=== PATIENT | male | born 1960 | race Caucasian/White ===

== ENCOUNTER 2022-06-19 06:38 | Day surgery (SDC) | payer OTHER, SELFPAY ==
[2022-06-19] VITALS (7 sets, daily range): BP systolic 123–150; BP diastolic 83–91; PULSE 74–81; RESP 16–17; TEMP 36.3–37.1; O2SAT 95–98; BMI 32.1
--- NOTE | 2022-06-19 06:50 | EKG12_ITS ---
Test Reason : PREOP Blood Pressure : / mmHG Vent. Rate : 079 BPM Atrial Rate : 079 BPM P-R Int : 156 ms QRS Dur : 076 ms QT Int : 386 ms P-R-T Axes : 001 -13 004 degrees QTc Int : 442 ms Normal sinus rhythm Normal ECG Confirmed by MOSHE MARTINEZ, ANDREW ([id number]), publishing editor OLGA MARC ([id number]) on 06/23/2022 1:17:17 PM Referred By: Yaakov Lyles Confirmed By:ANDREW MESA MD
[2022-06-19] MEDS: Lactated Ringers 1,000 ML 15 ML IV (07:09)
--- NOTE | 2022-06-19 07:12 | PCM.HP.BLA ---
History and Physical Date of Admission: 06/19/22 Visit Reasons:?Umbilical Hernia Chief Complaint: umbilical hernia, family history of colon cancer Hand Tufter Required: No Is patient in pain?: No Allergies No Known Allergies Allergy (Verified 05/07/22 09:00) Medications cholecalciferol (vitamin D3) 125 mcg (5,000 unit) capsule 125 mcg PO DAILY 05/07/22 [History Confirmed 05/07/22] losartan 50 mg tablet ea PO 05/07/22 [History Confirmed 05/07/22] omeprazole 20 mg capsule,delayed release ea PO 05/07/22 [History Confirmed 05/07/22] PFSH Medical History?(Updated 05/07/22 @ 08:58 by Krystle Sykes) History of melanoma HTN (hypertension) Surgical History?(Updated 05/07/22 @ 08:58 by Krystle Sykes) History of colonoscopy (~2016) History of melanoma excision Family History?(Updated 05/07/22 @ 08:59 by Krystle Sykes) Mother Colon cancerFather Cancer ?? ? lung Heart diseaseDaughter Cancer ?? ? melanomaBrother Hepatitis Social History Smoking Status:? Never smoker HPI HPI HPI: NITA MENESES, is a 61 M who presents to the office today for surgical consultation regarding an umbilical hernia.? The patient is referred by Dr. Yaakov Lyles and a written copy of my surgical consult recommendations will be returned to her.? By her notation the patient is also in need of a screening colonoscopy.? The patient's concern regarding his hernia is that although he has had it for a while now it is becoming intermittently uncomfortable.? He is still able to reduce it.? Finally he does have symptoms consistent with gastroesophageal reflux disease on chronic omeprazole therapy.? He has a previous history of hiatal hernia and esophagitis.? 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 Previous colonoscopy was April 07, 2017.? An upper endoscopy was performed at that time as well.? His current medications include low-dose aspirin and omeprazole 20 mg daily Patient has a family history of the mother who had colon cancer.? He has had 2 previous endoscopies and colonoscopies of which I am aware.? 2011 Dr. Jesus Latif.? April [address] Magda Orozco.? Biopsies were taken of during the upper endoscopy for each of those and no interesting pathology was identified.? No evidence for dysplasia or Zazueta's.? The most recent upper endoscopy with biopsies taken showed no inflammation and no evidence of eosinophilic esophagitis.? He is not had any personal history of colon polyps or colon cancer.? He denies any acute change in bowel habit. He is concerned about his umbilical hernia.? 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 ROS General General: No weight change, appetite, fatigue, colon cancer, breast cancer or weakness HEENT HEENT: No difficulty swallowing, eye injury, eye surgery, swollen glands or hoarseness Endo Endocrine: No thyroid disease, diabetes mellitus, thyroid cancer, Hair loss, heat intolerance or cold intolerance Breast Breast: No left breast lump, right breast lump, nipple discharge, breast pain, abnormal mammogram, abnormal US or breast enlargement [facility] Musculoskeletal: No back problems, arthritis, rheumatoid arthritis, gout or joint pain Cardio Cardiovascular: Yes high blood pressure; No murmur, pacemaker, heart disease, atrial fibrillation, heart attack, heart stent, palpitations, shortness of breat with exertion or chest pain Psych Psychiatric: No depression, anxiety or hearing voices Resp Respiratory: No shortness of breath, No sleep apnea, No cough, No COPD, No asthma, No emphysema and No wheezing Gastro Gastrointestinal: No abdominal pain, No nausea or vomiting, No diarrhea, No constipation, No blood in stool, No acid reflux, No hemorrhoids, No ulcers, No gallbladder problem and No black,tarry stools Philip Hematologic: No blood thinners, Yes blood disorders, No bleeding, No anemia and No blood clots Neuro Neurologic: No weakness Exam Const General: cooperative, comfortable and no acute distress Nutritional Appearance: obese Orientation: alert and awake [facility] Head: normal to inspection Eyes General: appearance normal, both eyes and all related structures Neck Neck: normal visual inspection Resp Effort & Inspection: normal respiratory effort Auscultation: clear to auscultation bilaterally Cardio Rate: regular rate Rhythm: regular rhythm GI Other: Soft, nontender, overweight, umbilical hernia noted partially reducible but tender to deep palpation.? No hepatosplenomegaly detected. [facility] Cervical Spine: normal cervical lordosis Skin General: no rashes or lesions noted Neuro General: patient alert, patient awake and patient oriented x3 Extrem General: normal to inspection Other: History of left leg fracture and atrophy as compared to the right Psych Appearance: grossly normal Assessment and Plan Assessment and Plan (1) Screening for intestinal cancer: ?Status:?Acute (2) Umbilical hernia without obstruction or gangrene: ?Status:?Acute (3) GERD (gastroesophageal reflux disease): ?Status:?Acute ?Plan: Fortunately the patient's GERD symptoms are stable and well managed with oral medication.? As noted he has had 2 previous upper endoscopies without adverse pathology.? I do not believe that a upper endoscopy is required at this time He has a family history of colon cancer in his mother.? I do recommend to him a colonoscopy with possible biopsy or polypectomy as indicated.? We will schedule and proceed as noted His umbilical hernia per patient count is enlarging.? The number of times that he is reducing this due to tenderness is notable and likely will lead to complication.? I recommend to him an umbilical herniorrhaphy with mesh and I have discussed the technique, benefit, risk, alternatives.? He has had an opportunity to ask and have questions answered.? We will proceed with a screening colonoscopy first and then follow-up with a subsequent umbilical herniorrhaphy.? We will schedule at his discretion. I appreciate the opportunity of assisting with the surgical care Copy: Dr. Yaakov Bonilla M.D., F.A.C.S. I have re-examined the patient. There are no clinical changes since date of exam. Tushar Bonilla M.D., F.A.C.S.
[2022-06-19 07:15] LABS: Hematocrit 47.2 % (40-54); Hemoglobin 16.2 g/dL (13.0-16.5); Mean Corp Hgb Conc 34.3 g/dL (32-36); Mean Corpuscular Hgb 31.3 pg (27.0-32.0); Mean Corpuscular Volume 91.3 fL (80-94); Mean Platelet Vol. 9.5 fl (6.2-12.0); Platelet Count 225 K/mm3 (150-450); RBC Distribution Width CV 11.9 % (11.6-14.6); RBC Distribution Width SD 39.8 fl (35.1-43.9); Red Blood Count 5.17 M/mm3 (4.6-6.2); White Blood Count 4.2 K/mm3 (4.4-11.0)
[2022-06-19 07:25] LABS: International Normalized Ratio 1.1; Prothrombin Time (Protime)PT. 13.6 SECONDS (11.7-14.9)
[2022-06-19 07:26] LABS: Partial Thromboplast Time 33.8 Seconds (24.1-36.2)
[2022-06-19 07:36] LABS: AST(SGOT) 32 U/L (15-37); Alanine Aminotransfer ALT/SGPT 17 U/L (16-61); Albumin, Serum 4.2 g/dL (3.2-5.0); Alkaline Phosphatase 61 U/L (45-117); Anion Gap 5 (5-15); BUN 10 mg/dL (7-18); BUN/Creat Ratio 11.6 RATIO (10-20); Bilirubin, Direct 0.18 mg/dL (0.00-0.30); Calcium,Total 9.1 mg/dL (8.5-10.1); Chloride 107 mmol/L (98-107); Creatinine, Serum 0.86 mg/dL (0.70-1.30); EST Glomerular Filtration Rate 96 mL/min (>60); Est Glom Filt Rate - Afr Amer 116 mL/min (>60); Estimated Creatinine Clearance 79.46 ml/min; Globulin 3.5 g/dL (2.2-4.2); Glucose 98 mg/dL (74-106); Potassium 3.8 mmol/L (3.5-5.1); Protein, Total 7.7 g/dL (6.4-8.2); Sodium Level 138 mmol/L (136-145)
--- NOTE | 2022-06-19 07:38 | OP.COLON_ITS ---
Patient Name: Alexis Benton Procedure Date: 06/19/2022 7:16 AM Date of : 1960 Age: 61 Procedure: Colonoscopy Indications: Family history of colon cancer in a first-degree relative Providers: Tushar Bonilla MD Medicines: See the Anesthesia note for documentation of the administered medications Patient Profile: Last Colonoscopy: 5 years ago. Complications: No immediate complications. Procedure: Pre-Anesthesia Assessment: - Prior to the procedure, a History and Physical was performed, and patient medications and allergies were reviewed. The patient's tolerance of previous anesthesia was also reviewed. The risks and benefits of the procedure and the sedation options and risks were discussed with the patient. All questions were answered, and informed consent was obtained. Prior Anticoagulants: The patient has taken no previous anticoagulant or antiplatelet agents. ASA Grade Assessment: II - A patient with mild systemic disease. After reviewing the risks and benefits, the patient was deemed in satisfactory condition to undergo the procedure. After I obtained informed consent, the scope was passed under direct vision. Throughout the procedure, the patient's blood pressure, pulse, and oxygen saturations were monitored continuously. The pediatric colonoscope was introduced through the anus and advanced to the cecum, identified by appendiceal orifice and ileocecal valve. The colonoscopy was performed without difficulty. The patient tolerated the procedure well. The quality of the bowel preparation was good. The ileocecal valve and the appendiceal orifice were photographed. Scope In: 7:21:42 AM Scope Withdrawal Time 0 hours 8 minutes 21 seconds Scope Out: 7:33:42 AM Total Procedure Duration Time 0 hours 12 minutes 0 seconds Findings: Hemorrhoids were found on perianal exam. Prostate normal, No mass Scattered diverticula were found in the sigmoid colon. The exam was otherwise without abnormality. Impression: - Hemorrhoids found on perianal exam. - Diverticulosis in the sigmoid colon. - The examination was otherwise normal. - No specimens collected. Recommendation: - Discharge patient to home. - Resume previous diet. - Continue present medications. - Repeat colonoscopy in 5 years for surveillance. Procedure Code(s): --- Professional --- 25842, Colonoscopy, flexible; diagnostic, including collection of specimen(s) by brushing or washing, when performed (separate procedure) Diagnosis Code(s): --- Professional --- K64.9, Unspecified hemorrhoids Z80.0, Family history of malignant neoplasm of digestive organs K57.30, Diverticulosis of large intestine without perforation or abscess without bleeding CPT copyright 2017 [employer]. All rights reserved. The codes documented in this report are preliminary and upon meter maker review may be revised to meet current compliance requirements. Tushar Bonilla MD 06/19/2022 7:37:58 AM This report has been signed electronically. Number of Addenda: 0 Note Initiated On: 06/19/2022 7:16 AM
--- NOTE | 2022-06-19 07:39 | OP.CCLET_ITS ---
06/19/2022 Yaakov Lyles [address] [place] [address] Re : Colonoscopy procedure for Alexis Benton Dear Dr. Lyles This procedure was performed on Sunday, June 19, 2022. My impressions and recommendations are as follows: Impressions : - Hemorrhoids found on perianal exam. - Diverticulosis in the sigmoid colon. - The examination was otherwise normal. - No specimens collected. Recommendations : - Discharge patient to home. - Resume previous diet. - Continue present medications. - Repeat colonoscopy in 5 years for surveillance. My findings are described in the full procedure note, which is enclosed. If I can be of further assistance, please feel free to contact me at Doctor phone number(s): Work: . Sincerely, Tushar Bonilla MD 06/19/2022 7:37:58 AM This report has been signed electronically.
== END 2022-06-19 08:25 | disposition home or self-care (01) ==
LOC: EN 06:41 → AC 06:42
PROVIDERS: Anesthesiology; PCP Student in an Organized Health Care Education/Training Program; Referring Provider Student in an Organized Health Care Education/Training Program; Visit Provider Surgery
PROC: 0DJD8ZZ Inspection of Lower Intestinal Tract, Via Natural or Artificial Opening Endoscopic (ICD-10-PCS; CPT 45378; principal; 2022-06-19 07:40)
DX: Z12.11 Encounter for screening for malignant neoplasm of colon (principal); D66 Hereditary factor VIII deficiency; K57.30 Diverticulosis of large intestine without perforation or abscess without bleeding; K42.9 Umbilical hernia without obstruction or gangrene; K64.9 Unspecified hemorrhoids; I25.10 Atherosclerotic heart disease of native coronary artery without angina pectoris; I10 Essential (primary) hypertension; K21.9 Gastro-esophageal reflux disease without esophagitis; Z85.820 Personal history of malignant melanoma of skin; Z80.0 Family history of malignant neoplasm of digestive organs
CPT/HCPCS: 45378; 80048; 80076; 85027; 85610; 85730; 93005; J7120; J2405

== ENCOUNTER 2022-06-30 05:57 | Day surgery (SDC) | payer OTHER, SELFPAY ==
[2022-06-30] VITALS (11 sets, daily range): BP systolic 125–143; BP diastolic 74–98; PULSE 80–96; RESP 16; TEMP 36.3–36.8; O2SAT 93–97; BMI 33.0
[2022-06-30] MEDS: Lactated Ringers 1,000 ML 15 ML IV (06:34)
--- NOTE | 2022-06-30 06:53 | HP.PCM_ITS ---
History and Physical Date of Admission: 06/30/22 Chief Complaint: update H&P umbilical hernia RC 06/30 Digital X Ray Service Engineer Required: No Is patient in pain?: No Allergies No Known Allergies Allergy (Verified 06/25/22 08:33) Medications cholecalciferol (vitamin D3) 125 mcg (5,000 unit) capsule 125 mcg PO DAILY 05/07/22 [History Confirmed 06/25/22] losartan 50 mg tablet 100 mg PO DAILY 05/07/22 [History Confirmed 06/25/22] omeprazole 20 mg capsule,delayed release 20 mg PO DAILY 05/07/22 [History Confirmed 06/25/22] amlodipine 5 mg tablet 5 mg PO DAILY 06/17/22 [History Confirmed 06/25/22] PFSH Medical History? Easy bruising Excessive bleeding Gastric reflux Hemophilia History of melanoma HTN (hypertension) Surgical History? History of colonoscopy (~2016) History of melanoma excision Family History? Mother Colon cancerFather Cancer ?? ? lung Heart diseaseDaughter Cancer ?? ? melanomaBrother Hepatitis Social History? Smoking Status:? Never smoker HPI HPI Surgical H&P: Yes HPI: NITA MENESES, is a 61 M who presents to the office today for an update history and physical for an upcoming umbilical hernia surgery. Patient denies any recent hospitalizations or illnesses. Patient had a colonoscopy performed? by Dr. Bonilla on 06/19 which demonstrated hemorrhoids and diverticulosis of the sigmoid colon otherwise normal examination. No specimens collected. Recommend repeat colonoscopy i n 5years. Patient has a history of hemophilia. He notes 2 weeks ago he was placed on a new blood pressure medication, Losartan, due to uncontrolled blood pressure. Patient notes this has improved his blood pressure. He denies previous myocardial infarction, stroke or stents within his heart. He denies any pulmonary issues. Patient denies any side effects from anesthesia. Patient's previous history per Dr. Bonilla: NITA MENESES, is a 61 M who presents to the office today for surgical consultation regarding an umbilical hernia.? The patient is referred by Dr. Yaakov Lyles and a written copy of my surgical consult recommendations will be returned to her.? By her notation the patient is also in need of a screening colonoscopy.? The patient's concern regarding his hernia is that although he has had it for a while now it is becoming intermittently uncomfortable.? He is still able to reduce it.? Finally he does have symptoms consistent with gastroesophageal reflux disease on chronic omeprazole therapy.? He has a previous history of hiatal hernia and esophagitis.? 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 Previous colonoscopy was April 07, 2017.? An upper endoscopy was performed at that time as well.? His current medications include low-dose aspirin and omeprazole 20 mg daily Patient has a family history of the mother who had colon cancer.? He has had 2 previous endoscopies and colonoscopies of which I am aware.? 2011 Dr. Jesus Latif.? April [address] Magda Orozco.? Biopsies were taken of during the upper endoscopy for each of those and no interesting pathology was identified.? No evidence for dysplasia or Zazueta's.? The most recent upper endoscopy with biopsies taken showed no inflammation and no evidence of eosinophilic esophagitis.? He is not had any personal history of colon polyps or colon cancer.? He denies any acute change in bowel habit. He is concerned about his umbilical hernia.? 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 ? ROS General General: No weight change, appetite, fatigue, colon cancer, breast cancer or weakness HEENT HEENT: No difficulty swallowing, eye injury, eye surgery, swollen glands or hoarseness Endo Endocrine: No thyroid disease, diabetes mellitus, thyroid cancer, Hair loss, heat intolerance or cold intolerance Breast Breast: No left breast lump, right breast lump, nipple discharge, breast pain, abnormal mammogram, abnormal US or breast enlargement Musc Musculoskeletal: No back problems, arthritis, rheumatoid arthritis, gout or joint pain Cardio Cardiovascular: Yes high blood pressure; No murmur, pacemaker, heart disease, atrial fibrillation, heart attack, heart stent, palpitations, shortness of breat with exertion or chest pain Psych Psychiatric: No depression, anxiety or hearing voices Resp Respiratory: No shortness of breath, No sleep apnea, No cough, No COPD, No asthma, No emphysema and No wheezing Gastro Gastrointestinal: No abdominal pain, No nausea or vomiting, No diarrhea, No constipation, No blood in stool, No acid reflux, No hemorrhoids, No ulcers, No gallbladder problem and No black,tarry stools Philip Hematologic: No blood thinners, Yes blood disorders, No bleeding, No anemia and No blood clots Neuro Neurologic: No weakness Exam Const General: cooperative, healthy appearing, comfortable and no acute distress [facility] Head: normal to inspection Eyes General: appearance normal, both eyes and all related structures Neck Neck: normal visual inspection Neck mass: No Resp Effort & Inspection: normal respiratory effort and able to speak in complete sentences Auscultation: clear to auscultation bilaterally Cardio Rate: regular rate Rhythm: regular rhythm GI Inspection: normal to inspection Palpation: soft and hernia umbilical (easily reducible) Musc Cervical Spine: normal cervical lordosis Skin General: no rashes or lesions noted Neuro General: no focal motor deficits and CN's II-XI intact bilaterally Extrem General: normal to inspection Psych Appearance: grossly normal Affect: normal affect Assessment and Plan Assessment and Plan (1) Umbilical hernia without obstruction or gangrene: ?Status:?Acute ?Plan: Dr. Bonilla will plan to perform an umbilical hernia repair with mesh. Procedure details, risks and benefits have been explained. Patient has had the opportunity to ask and have questions answered. Patient verbally understands and agrees with the plan I have re-examined the patient. There are no clinical changes since date of exam. Tushar Bonilla M.D., F.A.C.S.
[2022-06-30] MEDS: Cefazolin 2 GM in 0.9% Normal Saline 100 ML IV (07:18)
--- NOTE | 2022-06-30 07:21 | DCINST_ITS ---
Discharge Instructions Procedure General Surgery Diet Discharge Diet: Light diet - advance as tolerated (if you have questions about your diet instructions, please talk to you doctor.) Activity Discharge Activity: May Not Drive (for 3-5 days or while taking narcotic pain medicine.) May shower in (days): 1 Lifting Restrictions: 10 pounds Dressing / Incision Call your doctor if your incision/area has: Continuous Slow Oozing, Sudden Increased Bleeding, Increased Pain/ Swelling, Increased Redness and Foul Smelling Discharge Call your doctor if you observe: Fever of 101 or Higher Suture Line Care: Avoid Pulling/Pushing and Avoid Pinching/Bending Additional Dressing/Incision Instructions:: Change or remove dressing in 4 days. Follow Up Care Please Follow Up With: Tushar Bonilla MD When: Call [phone] to make an appointment to be seen in about 10 days. Test Results: Test results from this visit will be discussed in further detail at your follow- up appointment, if applicable. Discharge Plan Admission Attending Provider: Tushar Bonilla Primary Care Provider: Yaakov Lyles Discharge Orders/Prescriptions Prescriptions: No Action losartan 50 mg tablet 100 mg PO DAILY Label Comments: take 1 tablet by mouth once daily omeprazole 20 mg capsule,delayed release(DR/EC) 20 mg PO DAILY Label Comments: take 1 capsule by mouth once daily 1/2 HOUR BEFORE BREAKFAST FOR REFLUX cholecalciferol (vitamin D3) 125 mcg (5,000 unit) capsule 125 mcg PO DAILY amlodipine 5 mg tablet 5 mg PO DAILY Label Comments: take 1 tablet by mouth once daily Referrals / Follow Up: Yaakov Lyles DO [Primary Care Provider] - Disposition Disposition (needs filled in before D/C Order can be placed): Home, Self Care
--- NOTE | 2022-06-30 07:30 | HERN_PTH ---
PATIENT: NITA MENESES LOC: [facility] [place] U#:[id number] AGE/SX: 61/M ROOM: RE06/30/[address]: Dr. Tushar Bonilla MD : 1960 BED: DIS: 06/30/2022 SPEC #: [id number] RECD: 06/30/22 10:52 STATUS: INO REDuncan #: [id number] SYED: 06/30/22 07:[address]: Tushar Bonilla DEPT: SURGICAL PATHOLOGY RECD BY: Kandi Alarcon ENTERED: 06/30/22 11:59 SP TYPE: Hernia OTHR DR: Dr. Yaakov Lyles, DO Tissues: HERNIA Procedures: Surgery Specimen Level II HEADER OPERATION: Umbilical hernia repair with mesh PRE-OP DIAGNOSIS: Umbilical hernia TISSUE SUBMITTED: Umbilical hernia sac and contents MICROSCOPIC DIAGNOSIS Umbilical hernia sac and contents, excision: Fibrosis and mild chronic inflammation. AM:rex 07/01/2022 MICROSCOPIC DESCRIPTION Slides are reviewed. GROSS DESCRIPTION Received in fixative is one container labeled with the patient's name and designated umbilical hernia sac and contents. The specimen consists of a piece of adipose tissue measuring 2 x 1.5 x 2 cm. Sections do not reveal any mass lesion. Also present in the container is a detached piece of adipose tissue measuring 1 x 1 x 0.2 cm. Sow Farm Manager sections are submitted in one cassette. / SJ:rg 06/30/2022 TC:5 CPT: 97094
[2022-06-30] MEDS: Bupivacaine 0.25% 30 ML Vial (08:05)
--- NOTE | 2022-06-30 08:14 | PCM.OPRPT ---
Report of Operation Date of Procedure: 06/30/22 Pre-Operative Diagnosis: Symptomatic umbilical hernia Post-Operative Diagnosis: Same Surgery/Procedure Performed:: Umbilical herniorrhaphy with 6.4 cm Ventralex mesh Lot number [id number], reference [id number], expiry date 06/28/2023 Description of Surgical Findings:: Timeout informed consent was obtained. 69-year-old gentleman was taken to the operating placed upon the table underwent general anesthesia Ancef 2 g were given intravenously preoperatively the abdomen sterilely prepped and draped a curvilinear incision was made at the inferior portion of the umbilicus sharp dissection carried down through the subtenons tissue the umbilical hernia sac and contents identified electrocautery was used to transect then a retrorectus plane was created by releasing the peritoneum. A 6.[address] mesh was placed in this retrorectus space. The tails were secured in place with interrupted 0 Nurolon the fascia was then approximated transversely with simple sutures of the same incorporating the anterior surface of the mesh. Good positioning and placement of the mesh was achieved. The fascia and the subdermal skin were anesthetized with 0.25% Marcaine. A total of 20 cc was used. Skin edges were approximate interrupted 4 Monocryl subdermal stitches. Surgical glue was applied. Cottonball Telfa OpSite dressing. Sponge and instrument and needle counts were reported to the surgeon to be correct. Specimens hernia sac contents. Drains none. Blood loss minimal. The patient was taken to the recovery room in satisfactory addition without apparent complication Tushar Bonilla M.D., F.A.C.S. Surgeon: Tushar Bonilla Type of Anesthesia: General and Local Anesthesiologist: Kai Santana
[2022-06-30] MEDS: HYDROcodone Bitartrate/Apap 5/325 Tablet PO (10:19)
== END 2022-06-30 13:28 | disposition home or self-care (01) ==
LOC: SDC 05:58 → AC 05:59
PROVIDERS: PCP Student in an Organized Health Care Education/Training Program; Referring Provider Surgery; Visit Provider Surgery
PROC: (CPT 49585; principal; 2022-06-30 07:15)
DX: K42.9 Umbilical hernia without obstruction or gangrene (principal); D66 Hereditary factor VIII deficiency; K21.9 Gastro-esophageal reflux disease without esophagitis; I10 Essential (primary) hypertension; Z79.899 Other long term (current) drug therapy; Z85.820 Personal history of malignant melanoma of skin
CPT/HCPCS: 49585; 88302; C1781; J7120; J2405

== ENCOUNTER → 2023-07-26 | Outpatient (CLI) | payer OTHER, SELFPAY ==
--- NOTE | 2023-07-26 15:49 | STRESSREP_ITS ---
Stress Test Report Date: 07/26/2023 Procedure: Exercise tolerance test Indications: Dyspnea Consent: Per the patient Procedure: The patient exercised on a Rehan protocol for 9 minutes achieving a peak heart rate of 157 bpm (98% predicted maximal heart rate) with a peak blood pressure 188/98 mmHg and a peak MET capacity of approximately 10.1 MET's. The baseline ECG demonstrated sinus rhythm. The peak exercise ECG demonstrated no ischemic changes. Occasional PVCs were noted. The functional capacity was considered good. The patient complained of some chest tightness with exercise. The examination was discontinued secondary to target heart rate being achieved. Impression: 1. Technically adequate (percent predicted maximal heart rate greater than 85%) exercise tolerance test 2. Peak exercise ECG with no ischemic changes. 3. Complaint of left chest discomfort with exercise. 3. Occasional PVCs noted during exercise. This note was generated with [employer] Systems[employer] software. It may contain incorrect words, spelling, and punctuation that were not noted in checking the note before signing.
== END | disposition home or self-care (01) ==
PROVIDERS: PCP Student in an Organized Health Care Education/Training Program; Referring Provider Student in an Organized Health Care Education/Training Program; Visit Provider Student in an Organized Health Care Education/Training Program
DX: I10 Essential (primary) hypertension (principal); R60.0 Localized edema; R06.02 Shortness of breath
CPT/HCPCS: 93017

== ENCOUNTER → 2024-12-08 | Outpatient (CLI) | payer SELFPAY, OTHER ==
--- NOTE | 2024-12-08 17:42 | STRESSREP ---
Stress Test Report Pharmacologic myocardial perfusion stress test. 64-year-old man with chest pain Resting EKG demonstrates normal sinus rhythm with a rate of 94 bpm. Resting blood pressure is 142/98 mmHg. 0.4 mg of regadenoson was infused per usual protocol followed by rapid intravenous saline flush injection. Continuous EKG monitoring was performed. The maximum heart rate was 130 bpm which was 82 %of max impacted heart rate the maximum workload was 1 metabolic equivalent. At rest there were no ST or T wave changes noted to suggest ischemia and at peak infusion nonspecific ST changes were noted which did not meet the criteria for ischemia. No clinical angina is noted. The final blood pressure was 148/98 mmHg. Myocardial perfusion protocol. 13.9 mCi of technetium 99m sestamibi was injected at rest. 0.4 mg of regadenoson was infused per usual protocol. At peak infusion 43.8 mCi of technetium 99m sestamibi was injected stress images were obtained stress and rest images were reconstructed and compared in the short axis vertical long and horizontal long axis. Gated images were also obtained. Perfusion SPECT analysis: Review of the stress images demonstrate normal uptake of tracer noted in all areas of the myocardium. The resting images similar demonstrated normal uptake of tracer noted in all areas of the myocardium. No areas of reversibility are noted to suggest ischemia and no previous infarct is noted. Gated SPECT analysis: The gated ejection fraction is 52%. Conclusion: [Normal pharmacologic myocardial perfusion stress test. [Preserved ejection fraction.
== END | disposition home or self-care (01) ==
PROVIDERS: PCP Student in an Organized Health Care Education/Training Program; Referring Provider Internal Medicine Cardiovascular Disease; Visit Provider Internal Medicine Cardiovascular Disease
DX: R07.2 Precordial pain (principal)
CPT/HCPCS: 78452; 93017; A9500; A4216; J2785